=== PATIENT | female | born 1940 | race Caucasian/White ===

== ENCOUNTER 2016-08-21 08:44 | Inpatient (IN) ==
[2016-08-21] MEDS ORDERED: NS 500 ML IV ONE (12:11)
[2016-08-21 12:33] LABS: MANUAL DIFF NEEDED? NO
[2016-08-21 12:34] LABS: BASO% 0.7 % (0.0-0.8); EOS# 0.07 X1000 (0.0-0.7); EOS% 1.2 % (0.0-10.0); HEMATOCRIT 33.1 % (37.0-47.0); HEMOGLOBIN 11.4 g/dL (12.0-16.0); LYMPH% 15.6 % (20.5-51.1); MCH 32.7 PG (27-31); MCHC 34.4 g/dL (33-37); MCV 94.8 FL (81-99); MONO# 0.69 X1000 (0.11-0.59); MPV 9.4 FL (7.4-10.4); NEUT% 70.5 % (42.2-75.2); PLT 223 X1000 (130-400); RBC 3.49 XMIL (4.2-5.4)
[2016-08-21 12:52] LABS: AGAP 11; ALBUMIN 4.3 g/dL (3.5-5.0); ALKALINE PHOSPHATASE 59 U/L (32-104); BUN 26 mg/dL (8-22); CALCIUM 9.1 mg/dL (8.8-10.2); CHLORIDE 93 mmol/L (98-107); COSMO 262; GOT 25 U/L (10-30); GPT 23 U/L (10-36); POTASSIUM 4.4 mmol/L (3.5-5.1); SODIUM 128 mmol/L (136-145); TCO2 24 mmol/L (25-35); TOTAL PROTEIN 7.1 g/dL (6.3-8.3)
--- NOTE | 2016-08-21 12:52 | HISTORY AND PHYSICAL ---
PRIMARY CARE PHYSICIAN: Dr. Anand Stroud. HISTORY OF PRESENT ILLNESS: Ms. 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 Patient displays continued fatigue, nausea with emesis, and persistent weakness with refractory to salt tablets at baseline. REVIEW OF SYSTEMS: Twelve point review of systems pertinent for items mentioned in the HPI. Patient denies chest pain, cough, fever, chills, any dysuria or blood in any of her systems. PAST MEDICAL HISTORY: Includes SIADH, chronic hyponatremia, Crohn disease, hypertension, nonspecific heart valve disease, and hypothyroidism. PAST SURGICAL HISTORY: No past surgical history. MEDICATIONS: The patient is on Imuran for the Crohn disease, Prilosec 20 mg 1 tablet p.o. daily, hydralazine 25 mg p.o. b.i.d., Toprol 25 mg 1 tablet p.o. daily, Cozaar 50 mg b.i.d., levothyroxine 150 mcg daily, amlodipine 5 mg 1 tablet p.o. daily, Requip 1 mg p.o. at bedtime, sodium chloride 1000 mg 1 tablet p.o. q.i.d., and Zofran 8 mg 1 tablet p.o. q.8 hours p.r.n. nausea and vomiting. ALLERGIES: Patient is allergic to amoxicillin, codeine, and some allergy prescriptions. FAMILY HISTORY: Negative for any age dependent issues or concerns. HABITS: Tobacco: The patient is a never smoker. No alcohol: No history of alcohol use. SOCIAL HISTORY: Patient is currently retired. . Does high level of activity on a chronic and daily basis. PHYSICAL EXAMINATION: VITAL SIGNS: BMI 24.9, blood pressure 168/82, O2 saturation 96% on room air, temperature 97.7 degrees. GENERAL: The patient is a thin, female in no acute distress. SKIN: Poor skin turgor. HEENT: Shows clear OP. Pupils equal, round, reactive to light. Extraocular movements are intact. NECK: No thyromegaly noted. CHEST: Clear to auscultation anteriorly, though thin with increased AP diameter. CV: Regular rate and rhythm. No murmurs, gallops, or rubs. ABDOMEN: Soft, nontender, nondistended. EXTREMITIES: Lower extremities show no cyanosis, clubbing, or edema. Normal peripheral pulses. NEUROLOGICAL: Cranial nerves 2 through 12 are grossly intact. LABS: From our prior evaluation 07/19/2016 show a sodium of 128 with a BUN of , creatinine of 0.64, chloride evaluated at 87. No labs or imaging additional at this time. ASSESSMENT: We have a 76-year-old female being evaluated for syndrome of inappropriate antidiuretic hormone and chronic hyponatremia. PLAN: We will provide antiemetics along with Samsca. Continue to monitor the hyponatremia and adjust fluids as appropriate. The patient will be followed as an inpatient due to this chronic condition but we will hopefully re-evaluate the patient quickly enough so that we can determine the best measure of treatment and then discharge for outpatient followup p.r.n. GI prophylaxis will be performed and the patient will be advised to ambulate and have sequential compression devices in place. No need for Lovenox at this time. cc: Anand Stroud MD
--- NOTE | 2016-08-21 13:09 | Diag Imaging Result Document ---
PROCEDURE NAME: CHEST-2 VIEWS - 08/21/2016 FRONTAL AND LATERAL CHEST, TWO VIEWS: COMPARISON: 03/08/2016. FINDINGS: The lungs are well expanded. The heart is not enlarged. The vessels are not distended. No pneumonia. No pleural effusions. IMPRESSION: No acute abnormality.
[2016-08-21] MEDS ORDERED: PNEUMOVAX 23 IM ONE (14:30)
[2016-08-21] MEDS: NS 1,000 ML IV SCH ×2 (14:46→23:27)
[2016-08-21] MEDS ORDERED: SAMSCA PO ONE (16:00)
[2016-08-22] MEDS: NS 1,000 ML IV SCH ×2 (07:00→17:06)
[2016-08-22] MEDS ORDERED: SYNTHROID PO SCH (07:15)
--- NOTE | 2016-08-22 07:23 | PROGRESS NOTE ---
DATE: 08/22/2016 PRIMARY CARE PHYSICIAN: Dr. Anand Stroud. SUBJECTIVE: Overnight, the patient responded well to therapy. Had 1 episode of blood pressure 135/51, noting the low diastolic number. No overt issues or complaints noted per staff. PHYSICAL EXAMINATION: Vital Signs: Temperature 97.6 degrees, pulse 56, respirations 19, blood pressure 156/52, O2 saturation 98% on room air. Weight 134. General Examination: Well developed, female, appearance younger than stated age. No acute distress. IV infusing without issues. HEENT: OP is clear. Pupils equal, round, and reactive to light and accommodation. Moist mucous membranes. Skin: Warm and dry. Chest: Clear to auscultation anteriorly. CV: Regular rate with occasional PVCs. No murmurs or gallops noted. Abdomen: Soft, nontender, nondistended. Bowel sounds positive. Extremities: Lower extremities with no cyanosis, no clubbing, and no edema noted. Neurological: Cranial nerves 2-12 are grossly intact. Is and Os: Show multiple voids but not specifically measured. LABORATORY DATA: Labs this a.m. are pending. The patient did have a chest x-ray performed on 08/21/2016 that shows no acute differences or changes. ASSESSMENT AND PLAN: This is a 76-year-old female with syndrome of inappropriate antidiuretic hormone secretion and chronic hyponatremia. We will continue fluid volume resuscitation. Follow the dose of Samsca and monitor for any changes symptomatically. Expected 1 overnight stay with discharge early in the morning. The patient should be evaluated for Samsca as an outpatient status post evaluation of the response to the current therapy. cc: Anand Stroud MD
[2016-08-22 07:31] LABS: MANUAL DIFF NEEDED? NO
[2016-08-22 07:34] LABS: BASO% 1.3 % (0.0-0.8); EOS# 0.11 X1000 (0.0-0.7); EOS% 2.9 % (0.0-10.0); HEMATOCRIT 35.3 % (37.0-47.0); HEMOGLOBIN 11.9 g/dL (12.0-16.0); LYMPH# 1.06 X1000 (1.2-3.4); LYMPH% 27.7 % (20.5-51.1); MCH 32.2 PG (27-31); MCHC 33.7 g/dL (33-37); MCV 95.4 FL (81-99); MONO# 0.59 X1000 (0.11-0.59); MONO% 15.4 % (1.7-9.3); MPV 9.6 FL (7.4-10.4); NEUT% 52.7 % (42.2-75.2); PLT 230 X1000 (130-400)
[2016-08-22 08:13] LABS: AGAP 11; ALBUMIN 3.9 g/dL (3.5-5.0); ALKALINE PHOSPHATASE 59 U/L (32-104); BUN 16 mg/dL (8-22); CALCIUM 9.3 mg/dL (8.8-10.2); CHLORIDE 104 mmol/L (98-107); COSMO 278; GOT 22 U/L (10-30); GPT 21 U/L (10-36); MAGNESIUM 2.1 mg/dL (1.5-2.7); POTASSIUM 4.1 mmol/L (3.5-5.1); SODIUM 139 mmol/L (136-145); TCO2 25 mmol/L (25-35)
[2016-08-22] MEDS: ENTOCORT EC PO SCH (08:32)
[2016-08-22] MEDS: SYNTHROID PO SCH (08:33)
[2016-08-22] MEDS: APRESOLINE PO SCH ×4 (08:33→22:47)
[2016-08-22] MEDS ORDERED: ASTELIN NASAL SPRAY NAS PRN (09:00)
[2016-08-22] MEDS ORDERED: IMURAN PO SCH (09:00)
[2016-08-22] MEDS: COLAZAL PO SCH ×3 (10:46→22:47)
[2016-08-22] MEDS: IMURAN PO SCH ×2 (19:36→22:48)
[2016-08-22] MEDS ORDERED: REQUIP PO SCH (21:00)
[2016-08-23] MEDS: APRESOLINE PO SCH (04:04)
[2016-08-23] MEDS: SYNTHROID PO SCH (06:04)
[2016-08-23 06:10] LABS: MANUAL DIFF NEEDED? NO
[2016-08-23 06:27] LABS: BASO% 1.2 % (0.0-0.8); EOS# 0.17 X1000 (0.0-0.7); EOS% 3.3 % (0.0-10.0); HEMATOCRIT 32.9 % (37.0-47.0); HEMOGLOBIN 11.6 g/dL (12.0-16.0); IMM GRAN# 0.01 X1000 (0.0-0.04); IMM GRAN% 0.2 % (0.0-0.5); LYMPH# 1.16 X1000 (1.2-3.4); LYMPH% 22.4 % (20.5-51.1); MCH 33.9 PG (27-31); MCHC 35.3 g/dL (33-37); MCV 96.2 FL (81-99); MONO# 0.73 X1000 (0.11-0.59); MONO% 14.1 % (1.7-9.3); MPV 10.5 FL (7.4-10.4); NEUT% 58.8 % (42.2-75.2); PLT 209 X1000 (130-400); RBC 3.42 XMIL (4.2-5.4)
[2016-08-23 07:00] LABS: AGAP 13; ALBUMIN 3.6 g/dL (3.5-5.0); ALKALINE PHOSPHATASE 54 U/L (32-104); BUN 13 mg/dL (8-22); CHLORIDE 103 mmol/L (98-107); COSMO 270; GOT 24 U/L (10-30); GPT 19 U/L (10-36); POTASSIUM 4.1 mmol/L (3.5-5.1); SODIUM 135 mmol/L (136-145); TCO2 19 mmol/L (25-35); TOTAL PROTEIN 5.9 g/dL (6.3-8.3)
[2016-08-23 07:12] VITALS: BP 154/82
[2016-08-23] MEDS ORDERED: SAMSCA PO ONE (07:13)
[2016-08-23] MEDS: COLAZAL PO SCH (08:55)
[2016-08-23] MEDS: ENTOCORT EC PO SCH (08:57)
--- NOTE | 2016-08-24 13:21 | DISCHARGE SUMMARY ---
ADMISSION DATE: 08/21/2016 DISCHARGE DATE: 08/23/2016 PRIMARY CARE PHYSICIAN: Anand Stroud MD. HISTORY OF PRESENT ILLNESS: The patient was admitted on 08/21/2016, being discharged today 08/23/2016. No consults. In brief, Ms Celaya is a 76-year-old, white female with a history of SIADH and chronic hyponatremia directed admit for overnight stay for evaluation and appropriate treatment with the use of Samsca for the chronic hyponatremia. PROBLEM LIST: 1. Includes SIADH. 2. Chronic hyponatremia. 3. Crohn's disease. 4. Hypertension. 5. Nonspecific heart valve disease. 6. Hypothyroidism. 7. Hypertension. LABS: Showed WBC within normal limits. Hemoglobin and hematocrit of 11 and 32 respectively. MCV of 96. Platelet count 209,000, neutrophils of 58.8, chemistry shows sodium from 128 up to 139, and down to 135 status post 1 dose of Samsca. Anion gap of 13. BUN 13. Creatinine 0.5 and phosphorus within normal limits. Total protein 5.9. TSH 0.20. Urine osmolality 443 with urine random sodium of 61. The patient had a chest x-ray performed 08/21/2016 that showed no acute abnormality with well expanded lungs, heart enlarged. HOSPITAL COURSE: Patient is admitted to general medical floor and treated with IV fluid resuscitation and continuation of her home medications, and 1 dose of Samsca, is status post 2 L of fluid. Patient responded well, is appropriate. Stated that she felt much better and the patient was continued to be watched overnight. On the day of discharge, patient's sodium did fall a small bit, but still far above standard baseline. One additional dose of Samsca is going to be provided before the patient's discharge. DISPOSITION: The patient will be discharged home in stable condition. MEDICATIONS: Please refer to medication reconciliation order form for most up-to-date medications. Patient will be continued on her home medications and will have Samsca twice weekly. That will be provided outpatient status post the physician's prior authorization. The patient has been discharged today with advice to follow up in my office on Friday to start that process for the prior authorization. cc: Anand Stroud MD
== END 2016-08-23 10:55 | disposition home or self-care (01) ==
LOC: P.DIRADM 08:44 → P.MEDSURG 11:10
PROVIDERS: ADMIT Family Medicine; ATTEND Family Medicine

== ENCOUNTER 2017-01-22 01:25 | Inpatient (IN) ==
[2017-01-22] MEDS ORDERED: ZOFRAN IV ONE ×2 (02:58→07:18)
[2017-01-22 03:10] LABS: BILIRUBIN URINE NEGATIVE (NEGATIVE); BLOOD URINE TRACE (NEGATIVE); CLARITY SL. CLOUDY (CLEAR); COLOR YELLOW; GLUCOSE URINE NEGATIVE (NEGATIVE); LEUKOCYTES URINE NEGATIVE (NEGATIVE); NITRITE URINE NEGATIVE (NEGATIVE); PROTEIN URINE NEGATIVE (NEGATIVE); SP GRAVITY URINE 1.015; UROBILINOGEN URINE NORMAL
[2017-01-22 03:22] LABS: URINE CULTURE PL NEEDED? YES; URINE EPITHELIAL CELLS <10 /HPF (<10); URINE RBC <10 /HPF (<10); URINE SOURCE CLEAN CATCH; URINE WBC <10 /HPF (<10)
[2017-01-22] MEDS: NS 1,000 ML IV PRN ×2 (03:30→19:33)
[2017-01-22 03:31] LABS: BASO% 0.1 % (0.0-0.8); EOS# 0.01 X1000 (0.0-0.7); EOS% 0.1 % (0.0-10.0); HEMATOCRIT 40.8 % (37.0-47.0); HEMOGLOBIN 14.3 g/dL (12.0-16.0); IMM GRAN# 0.02 X1000 (0.0-0.04); IMM GRAN% 0.1 % (0.0-0.5); LYMPH% 6.5 % (20.5-51.1); MANUAL DIFF NEEDED? YES; MCH 31.9 PG (27-31); MCV 91.1 FL (81-99); MONO% 6.5 % (1.7-9.3); MPV 9.9 FL (7.4-10.4); NEUT% 86.7 % (42.2-75.2); PLT 243 X1000 (130-400); RBC 4.48 XMIL (4.2-5.4)
[2017-01-22 03:53] LABS: BANDS 1 % (0-1); LYMPHS 12 % (21-51); MONO 4 % (1-9)
[2017-01-22 03:56] LABS: HYPOCHROM OCCASIONAL; TARGET CELLS OCCASIONAL
[2017-01-22 03:58] LABS: AGAP 13; ALBUMIN 4.5 g/dL (3.5-5.0); ALKALINE PHOSPHATASE 69 U/L (32-104); BUN 12 mg/dL (8-22); CALCIUM 9.7 mg/dL (8.8-10.2); CHLORIDE 87 mmol/L (98-107); COSMO 254; GOT 29 U/L (10-30); GPT 22 U/L (10-36); POTASSIUM 3.6 mmol/L (3.5-5.1); SODIUM 125 mmol/L (136-145); TCO2 25 mmol/L (25-35); TOTAL PROTEIN 8.1 g/dL (6.3-8.3)
[2017-01-22] MEDS ORDERED: DEMEROL IV ONE (04:10)
--- NOTE | 2017-01-22 04:16 | PROVIDER DOCUMENTATION ---
HPI-Abdominal Pain/GI Problem - General Chief Complaint: Abdominal Pain Stated Complaint: VOMITING Time Seen by Provider: 01/22/17 02:56 Source: patient Allergies/Adverse Reactions: Patient Allergies Allergy/AdvReac Type Severity Reaction Status Date / Time amoxicillin trihydrate * Allergy Mild ITCHING Verified 01/22/17 01:38 [From Amoxil] codeine Allergy Mild NAUSEA/VOMI Verified 01/22/17 01:38 TING Home Medications: Home Medication List Medication Instructions Recorded Confirmed Last Taken Type Azathioprine [Imuran] 100 mg PO HS tablet 08/22/16 01/22/17 Unknown Rx Budesonide E.r. [Entocort EC] 3 mg PO DAILY capsule 08/22/16 01/22/17 Unknown Rx Levothyroxine [Synthroid] 150 microgm PO DAILY@0700 tablet 08/22/16 01/22/17 Unknown Rx Ropinirole [Requip] 1 mg PO HS tablet 08/22/16 01/22/17 Unknown Rx Metoprolol Succinate E.r. [Toprol 25 mg PO DAILY 01/22/17 01/22/17 Unknown History Xl] - History of Present Illness-ABD Abdominal Pain Onset Location: reports: RLQ, LLQ, periumbilical, suprapubic Pain Radiation: reports: no radiation Quality of Pain: reports: cramping, stabbing Severity in ED: reports: severe Onset/Duration: reports: 4-6 hours ago Timing: reports: still present Activities at Onset: reports: rest Exposure to sick contacts?: No Modifying Factors: improves with: eating Associated Symptoms: reports: vomiting Last BM: 24 hours ago Dark Stools Present?: reports: none noticed Rectal Bleeding: reports: none # of Vomiting Episodes: 3 Emesis Description: reports: clear Bruising or Bleeding Gums?: No Similar Symptoms Previously?: Yes (BOWEL OBSTRUCTION) Recently seen or treated by another doctor?: No Review of Systems - Adult - REVIEW OF SYSTEMS - ADULT Constitutional: reports: no symptoms reported Eyes: reports: no symptoms reported Ears, Nose, Mouth & Throat: reports: no symptoms reported Cardiovascular: reports: no symptoms reported Respiratory: reports: no symptoms reported Gastrointestinal: reports: abdominal pain, nausea, vomiting Genitourinary: reports: no symptoms reported Musculoskeletal: reports: no symptoms reported Integumentary: reports: no symptoms reported Neurological: reports: no symptoms reported Psychiatric: reports: no symptoms reported Endocrine: reports: no symptoms reported Hematologic/Lymphatic: reports: no symptoms reported Allergic/Immunologic: reports: no symptoms reported All Other Systems: Reviewed and Negative Past History - Adult - PAST MEDICAL HISTORY-ADULT Review of Records: reports: Old Records Reviewed, Nursing Assessment Review, Medications Reviewed, Social history reviewed & non-contributory. Major Childhood Illnesses: reports: denies history Cardiovascular: reports: HTN Respiratory: reports: denies history Gastrointestinal: reports: Crohn's, obstruction, other (Crohns previous ' blockage.'). denies: GI bleed Obstetrical/Gynecological: reports: denies history Genitourinary: reports: denies history Musculoskeletal: reports: denies history Neurological: reports: denies history Endocrine/Immune: reports: denies history Other Conditions: reports: denies history - PRIOR SURGERIES/PROCEDURES Surgical/Procedure History: reports: colonoscopy, bowel surgery. denies: recent surgery, CABG - PRIOR HOSPITALIZATIONS Prior Hospitalizations: reports: for similar symptoms - IMMUNIZATION STATUS Childhood Immunizations: See Nurse Assessment Flu Vaccine: See Nurse Assessment - FAMILY HISTORY Family History: reviewed, not pertinent Physical Exam-General - PHYSICAL EXAM-ADULT Initial Vital Signs Reviewed: Yes - CONSTITUTIONAL General Appearance: alert, moderate distress, anxious - EYES Eyes: PERRL/EOMI, pink conjunctivae - HEAD, EARS, NOSE, MOUTH & THROAT HENMT: normocephalic/atraumatic, moist mucous membranes, normal ENT inspection, TMs normal - NECK Neck: non-tender, full range of motion, supple - RESPIRATORY Respiratory: normal breath sounds, crackles (SCATTERED) - CARDIOVASCULAR Cardiovascular: regular rate, rhythm, no edema, no gallop, no JVD - GASTROINTESTINAL (ABDOMEN) Abdominal Exam: normal bowel sounds, distended, guarding, tenderness (ACROSS PELVIS). negative: rigid - LYMPHATIC Lymphatic: no adenopathy - MUSCULOSKELETAL Back Exam: no CVA tenderness, no vertebral tenderness Extremity: non-tender, normal gait, normal inspection, no pedal edema - SKIN Integumentary: normal color, normal turgor, warm/dry, abrasion(s) - NEUROLOGIC Neurologic: grossly normal, no motor/sensory deficits - PSYCHIATRIC Psych/Mental Status: anxious Progress - PLAN OF CARE/RESULTS Progress/Plan/Lab Results: Vital Signs - 8 hr 01/22/17 01:31 Temperature 97.4 F L Pulse Rate 67 Respiratory Rate 16 Blood Pressure 151/72 O2 Sat by Pulse Oximetry 96 Laboratory Results - last 24 hr 01/22/17 01/22/17 01/22/17 02:53 03:05 03:05 WBC 13.77 H RBC 4.48 Hgb 14.3 Hct 40.8 MCV 91.1 MCH 31.9 H MCHC 35.0 RDW Std Deviation 13.7 Plt Count 243 MPV 9.9 Immature Gran % (Auto) 0.1 Neut % (Auto) 86.7 H Lymph % (Auto) 6.5 L Ware % (Auto) 6.5 Eos % (Auto) 0.1 Baso % (Auto) 0.1 Immature Gran # (Auto) 0.02 Neut # (Auto) 11.92 H Lymph # (Auto) 0.90 L Ware # (Auto) 0.90 H Eos # (Auto) 0.01 Baso # (Auto) 0.02 Segmented Neutrophils 82 H Band Neutrophils 1 Lymphocytes 12 L Monocytes 4 Atypical Lymphocytes 1.0 Hypochromia OCCASIONAL Poikilocytosis OCCASIONAL Target Cells OCCASIONAL Sodium 125 L Potassium 3.6 Chloride 87 L Carbon Dioxide 25 Anion Gap 13 BUN 12 Creatinine 0.6 Estimated GFR/1.73 m2 > 60 BUN/Creatinine Ratio 20 Glucose 150 H Calculated Osmolality 254 Calcium 9.7 Total Bilirubin 0.60 AST 29 ALT 22 Alkaline Phosphatase 69 Total Protein 8.1 Albumin 4.5 Globulin 4.0 Albumin/Globulin Ratio 1.0 Urine Source CLEAN CATCH Urine Color YELLOW Urine Clarity SL. CLOUDY A Urine pH 9.0 Ur Specific [place] 1.015 Urine Protein NEGATIVE Urine Ketones NEGATIVE Urine Blood TRACE Urine Nitrite NEGATIVE Urine Bilirubin NEGATIVE Urine Urobilinogen NORMAL Urine Microscopic RBC <10 Urine WBC NEGATIVE Urine Microscopic WBC <10 Ur Epithelial Cells <10 Urine Bacteria 3+ Urine Glucose NEGATIVE Orders Category Date Time Status CT ABD/PELVIS W/PO AND IV CON [CT] Stat Exams 01/22/17 04:09 Ordered FLAT/UPRIGHT ABD/1 VIEW CHEST [RAD] Stat Exams 01/22/17 02:57 Taken CBC WITH DIFF [HEME] Stat Lab 01/22/17 03:05 Completed COMPREHENSIVE METABOLIC PANEL [CHEM] Stat Lab 01/22/17 03:[address] W/POSS RFLX CULT [URINALYSIS] Stat Lab 01/22/17 02:53 Completed URINE CULTURE [RM] Routine Lab 01/22/17 03:22 Ordered 0.9% Sodium Chloride Inj [Ns] 1,000 ml Med 01/22/17 02:58 Active IV 70 mls/hr Meperidine [Demerol] Med 01/22/17 04:10 Once 25 mg IV NOW ONE Ondansetron [Zofran] Med 01/22/17 02:58 Discontinued 4 mg IV NOW ONE Result Diagrams: 01/22/17 03:05 01/22/17 03:05 - REASSESSMENT Reassessment #1 Time Reassessed: 07:20 Status: unchanged (Took over pt's care at 6AM. Pt was examined. Reports she her lower abd still hurting and she vomited again. Awaiting for CT to be done. On PE , diffused lower abd distention and tenderness with somewhat guarding. IV Zofran and Morphine was given.) - XRAY 1 XRAY Study: Abdomen (LARGE AMT STOOL TRAPPED IN ASCENDING COLON WITH SCATTERED A -F LEVELS ACROSS MID ABDOMEN; BUT, NO DEFINITE OBSTRUCTION SEEN. C/W ILEUS) - CT/MRI 1 CT Study: Abdomen, Pelvis Impression: Abnormal CT Results: Please see Radiology report - cannot r/o distal SBO - CONSULTS/PCP/HOSPITALIST Notification #1 *Consult/PCP/Hospitalist*: Dr. Kessler Time Discussed: 08:36 Reason/Comments: Admit to hospitalist at [facility]. Dr. Kessler will the pci security consultant #2 Consult: Dr. Hill Time Discussed: 08:37 Reason/Comments: Will do H&P and admit to [facility] Departure - Departure Date of Disposition Decision: 01/22/17 Time of Disposition Decision: 08:37 DIAGNOSIS: SBO (small bowel obstruction), Nausea & vomiting Disposition: ADMITTED INPATIENT 09 Certified Medical Emergency: Emergent Condition: Stable Referrals and Follow-Ups: Anand Stroud MD [Primary Care Provider] - - Critical Care Note This patient required my direct & personal management of CC.: No Attestation - Physician/ MANDI Attestation Patient care was provided by Advanced Practice Provider:: No The physician spent face to face time with patient:: Yes Advanced Practice Provider documentation review:: Supervising physician onsite and consulted in the evaluation and care of this patient. The physician did have a face to face encounter with the patient.
[2017-01-22] MEDS ORDERED: PHENERGAN IV ONE ×2 (04:27→05:54)
[2017-01-22] MEDS ORDERED: SODIUM CHLORIDE 0.9% INJ ONE ×2 (04:27→05:54)
[2017-01-22] MEDS ORDERED: MORPHINE IV ONE (07:18)
--- NOTE | 2017-01-22 07:51 | Diag Imaging Result Doc PS360 ---
EXAM: CT ABD/PELVIS W/PO AND IV CON - 01/22/2017 HISTORY: ABD PAIN TECHNIQUE: With oral and intravenous contrast. Dose reduction protocol. COMPARISON: 07/01/2013 FINDINGS: There is a 1.2 x 0.8 cm lobulated noncalcified nodule with hazy margins at the posterior lateral right lung base. This is located above the level of the superiormost image of the previous exam. There are no acute abnormalities of the liver, adrenal glands, or pancreas identified. The spleen is relatively small but enhances homogeneously. There are no calcified gallstones or pericholecystic inflammation identified. The bilateral kidneys enhance homogeneously. There is no hydronephrosis. There are no substantial enlarged lymph nodes identified. The stomach is distended. There is diffuse dilatation of small bowel. There is mild wall thickening at the terminal ileum. There is fecal-like material in distal ileum suggesting stasis. There are postsurgical changes at the cecum or remaining proximal most colon. The colon is distended with retained fecal debris to approximately the splenic flexure. There is no discrete colon obstructing lesion identified. There is mild uncomplicated colonic diverticulosis. There is a small amount of free fluid. There is no free air identified. There is no abscess identified. IMPRESSION: Distended stomach. Diffusely dilated small bowel. Postsurgical changes at the cecum or remaining proximal most colon Distended colon with retained fecal debris to approximately the splenic flexure. Mild wall thickening along terminal ileum. The above findings may relate to colonic dysmotility with associated small bowel stasis, or possibly to a combination of colonic dysmotility and terminal ileitis with distal small bowel obstruction. Electronically signed by Peter Melvin 01/22/2017 7:49 AM
--- NOTE | 2017-01-22 08:35 | Diag Imaging Result Doc PS360 ---
EXAM: FLAT/UPRIGHT ABD/1 VIEW CHEST - 01/22/2017 HISTORY: ABD PAIN TECHNIQUE: Supine and upright abdomen and one view chest COMPARISON: 03/06/2016 FINDINGS: There is a large amount retained fecal debris in the colon. There is mild gaseous distention of proximal small bowel loops. There are multiple air-fluid levels on the upright view. There is no free air identified. There are surgical clips at the right lower quadrant. Upright chest. Labral 04/30/2017 shows normal heart size. There is a possible small nodular opacity at the right lower lung. There is no consolidation, pleural effusion, or pneumothorax identified. IMPRESSION: Constipation. Mild gaseous distention of a couple small bowel loops. Multiple air-fluid levels on the upright view. Please see report of subsequent CT abdomen and pelvis for further evaluation Possible small nodular opacity at right lower lung. No other acute changes in the chest. Electronically signed by Peter Melvin 01/22/2017 8:33 AM
[2017-01-22] MEDS ORDERED: PNEUMOVAX 23 IM ONE (11:15)
[2017-01-22] MEDS: MORPHINE IV PRN ×3 (11:16→21:36)
[2017-01-22] MEDS: ZOFRAN IV PRN ×2 (11:16→14:52)
--- NOTE | 2017-01-22 11:26 | HISTORY AND PHYSICAL ---
PRIMARY CARE PHYSICIAN: Anand Stroud MD. CHIEF COMPLAINT: Right lower quadrant and left lower quadrant abdominal pain that began Friday night and progressively worsened. HISTORY OF PRESENTING ILLNESS: This is a 76-year-old female who presents to [facility] ER with complaints of right lower quadrant and left lower quadrant abdominal pain. Describes it as a severe cramping, stabbing with associated nausea. Denies any vomiting. States these symptoms began around 8 a.m. on Friday night and progressively worsened. She has a history of small-bowel obstruction x2. She also has a history of Crohn disease. Her abdomen x-ray showed constipation mild gaseous distention of a couple of small bowel loops. Multiple air-fluid levels on the upright view. We obtained an abdomen and pelvic CT that showed an impression of a distended stomach with diffusely dilated small bowel. There were some postsurgical changes at the cecum or remaining proximal colon. Distended colon with retained fecal debris to approximately the splenic flexure. Mild wall thickening along the terminal ileum and the above findings may relate to a colonic dysmobility with associated small bowel stasis or possibly due to a combination of colonic dysmobility and terminal ileitis with distal small-bowel obstruction. So, she is being admitted for further evaluation and treatment. PAST MEDICAL HISTORY: SIADH. Chronic hyponatremia. Nonspecific heart valve disease. Bowel obstruction x2. Crohn's, hypertension and hypothyroidism. PAST SURGICAL HISTORY: Bowel surgery. FAMILY HISTORY: Noncontributory. SOCIAL HISTORY: She currently lives with family. Denies any tobacco, alcohol, or illicit drug use. ALLERGIES: Amoxicillin and codeine. HOME MEDICATIONS: Will be held at this time, but she takes aspirin 81 mg p.o. daily. Imuran 100 mg p.o. at bedtime, budesonide 3 mg p.o. daily. Synthroid 150 mcg p.o. daily. Toprol-XL 25 mg p.o. daily and Requip 1 mg p.o. at bedtime. LABORATORY DATA: Showed a white blood cell count of 13.77, hemoglobin 14.3, hematocrit 40.8, platelets 243. Sodium 125. Potassium 3.6, chloride 87, CO2 of 25, BUN of 12, creatinine 0.6, glucose 150. Urinalysis was negative except for 3+ bacteria. Abdomen x-ray showed constipation. Mild gaseous distention of a couple of small -bowel loops. Multiple air-fluid levels on the upright view. So, we obtained an abdomen and pelvic CT that showed a distended stomach. A diffusely dilated small-bowel. Retained fecal debris to approximately the splenic flexure. Mild wall thickening along the terminal ileum and those findings may relate with a colonic dysmotility with associated small bowel stasis or possibility a combination of colonic dysmotility and a terminal ileitis with a distal small- bowel obstruction. REVIEW OF SYSTEMS: She denied any fever, chills, blurred vision, dizziness, chest pain, coughing, shortness of breath. She is positive for lower quadrant abdominal pain, cramping, nausea. Denies any vomiting. She is positive for constipation and denies any diarrhea or burning or hurting with urination. PHYSICAL EXAMINATION: VITAL SIGNS: On arrival, she had a temperature of 97.4, pulse of 67, respirations 16, blood pressure 151/72, saturating 96% on room air. GENERAL: This is a 76-year-old, female who is lying in the bed, and answers questions appropriately. HEENT: Normocephalic and atraumatic. Pupils are equal, round, reactive to light. Extraocular movements are intact. Oropharynx and nares are clear. NECK: Supple. LUNGS: Clear to auscultation bilaterally with equal lung expansion and chest wall movement. HEART: With regular rate and rhythm. No murmurs, rubs, or gallops. ABDOMEN: Soft. There is tenderness to palpation to the right and left lower quadrant. Bowel sounds are present x4 quadrants. EXTREMITIES: No clubbing, cyanosis, or edema. NEUROLOGICAL: The cranial nerves 2-12 are grossly intact. ASSESSMENT: 1. Lower abdominal pain. 2. Small bowel obstruction. 3. Hyponatremia. 4. Hypertension. PLAN: She was admitted to the medical unit at [place], placed on telemetry. We will consult surgery and we will place an nasogastric tube to low intermittent suction. Urine culture is pending. We will place on morphine 1-2 mg IV q.3 hours p.r.n., normal saline at 70 mL an hour and Zofran 4 mg IV q.4 hours p.r.n. Recheck labs in the a.m. Further orders after being seen by surgery. Patient seen and examined by me face to face, all the lab work, images, vitals signs, were reviewed, She has been seen by surgery and GI before, I will consult surgery first because she is having abdominal distention and possible obstruction, will put this patient with IV fluids as well, NG tube. I agree with all the assessment and plan, Gurjit Scott MD Dictated by DONATO Figueredo for Gurjit John MD cc: MD Marge Rivera CRNP Omar J. Sosa-Chirinos, MD [facility]
--- NOTE | 2017-01-22 12:56 | Diag Imaging Result Doc PS360 ---
CHEST-PORTABLE - 01/22/2017 1229 INDICATION: NGT placement TECHNIQUE: COMPARISON: FINDINGS: There is a nasogastric tube in good position with the tip in the stomach. The lungs are clear and the heart size is normal. IMPRESSION: Nasogastric tube in the stomach. Electronically signed by Tuan Cardoso 01/22/2017 12:54 PM
[2017-01-22] MEDS: SOLU-MEDROL IV SCH (14:51)
[2017-01-22] MEDS: LEVAQUIN 750 MG/D5W 750 MG/150 ML IVPB IV SCH (14:52)
[2017-01-22] MEDS: FLAGYL 500 MG/NS 500 MG/100 ML IVPB IV SCH (16:37)
--- NOTE | 2017-01-22 18:05 | CONSULTATION ---
DATE OF CONSULTATION: 01/22/2017 REQUESTING PHYSICIAN: Dr. John REASON FOR CONSULTATION: Consult concerning likely Crohn's induced small bowel obstruction. HISTORY OF PRESENT ILLNESS: A 76-year-old female who presented to [facility] with complaints of right upper quadrant pain and left lower quadrant pain. She describes the pain as cramping and stabbing with associated nausea. She has had previous episodes of bowel obstruction secondary to Crohn's and had bowel resection x 2 in the past. She had a recent colonoscopy Dr. Martinez in December that showed a stricture in the terminal ilium. I discussed this over the phone with him and he confirmed that she is still being treated for Crohn's. She had a CT scan in the ER that showed a bowel obstruction likely related to a stricture in the terminal ileum. She does have some fecalization in her small bowel and significant stool burden in her colon. I was asked to evaluate the patient given these findings. PAST MEDICAL HISTORY: 1. History of SIADH. 2. Chronic hyponatremia. 3. Heart valvular disease. 4. Crohn's. 5. Hypertension. 6. Hypothyroidism. PAST SURGICAL HISTORY: Previous bowel resection x 2. FAMILY HISTORY: Reviewed with patient, noncontributory. SOCIAL HISTORY: Lives with family. Denies alcohol, tobacco or illicit drugs. ALLERGIES: Amoxicillin and codeine. HOME MEDICATIONS: Reviewed. Of note, patient is on Imuran. REVIEW OF SYSTEMS: A full 10 point review of systems obtained, negative as specified in HPI. PHYSICAL EXAMINATION: Vital Signs: The patient is currently afebrile with temperature 97.5 degrees, pulse is in the 70s, respiratory rate nonlabored in the 20s, blood pressure 168/64, O2 saturation 98% on room air. General exam: No acute distress. Resting comfortably. female, looks stated age. HEENT: Normocephalic, atraumatic. Pupils equal, round, reactive to light. Mucous membranes moist. Oropharynx benign. Neck: Supple. Trachea midline. Cardiovascular: Regular rate and rhythm. Lungs grossly clear. Abdomen: Soft, mildly distended. Some mild tenderness to palpation on the right side. No peritoneal signs. Extremities: Moves all extremities. Neurologic: Grossly intact. Skin: No signs of jaundice. Vascular: All extremities perfused. LABORATORY: White blood cell count is 13, hematocrit 40. Sodium is 125, chloride is 87, glucose is 150. CT scan reviewed and independently reviewed. ASSESSMENT/PLAN: A 76-year-old female with likely Crohn's exacerbation causing small- bowel obstruction secondary to stricture. 1. Stricture from small-bowel Crohn's. At this time, we will agree with nasogastric tube and decompression. May need MiraLAX once she gets better to kind of clean out the stool burden. Given the fact she had a recent colonoscopy and had a stricture at the terminal ilium, she likely probably needs a resection. I discussed her case with Dr. Martinez, who has been seeing her for long time for the Crohn disease. I will start her on Solu-Medrol and Levaquin after discussed it with him and his recommendations. Again will try to keep her decompressed and try to clean out her stool in the colon and in her small bowel and then consider surgery. 2. Multiple medical comorbidities including history of hypertension, hypothyroidism and hyponatremia, at this time being managed by the hospitalist service. She is being resuscitated. I appreciate the consult. cc: MD CHELO Griggs
[2017-01-23] MEDS: FLAGYL 500 MG/NS 500 MG/100 ML IVPB IV SCH ×3 (00:33→16:35)
[2017-01-23] MEDS: SOLU-MEDROL IV SCH ×2 (02:34→13:43)
[2017-01-23 06:32] LABS: BASO% 0.1 % (0.0-0.8); HEMATOCRIT 33.6 % (37.0-47.0); HEMOGLOBIN 11.6 g/dL (12.0-16.0); IMM GRAN# 0.01 X1000 (0.0-0.04); IMM GRAN% 0.1 % (0.0-0.5); LYMPH# 0.33 X1000 (1.2-3.4); LYMPH% 4.3 % (20.5-51.1); MANUAL DIFF NEEDED? YES; MCH 31.7 PG (27-31); MCHC 34.5 g/dL (33-37); MCV 91.8 FL (81-99); MONO# 0.19 X1000 (0.11-0.59); MONO% 2.5 % (1.7-9.3); PLT 199 X1000 (130-400); RBC 3.66 XMIL (4.2-5.4)
[2017-01-23 06:35] LABS: AGAP 9; BUN 12 mg/dL (8-22); CALCIUM 8.5 mg/dL (8.8-10.2); CHLORIDE 95 mmol/L (98-107); COSMO 260; POTASSIUM 4.3 mmol/L (3.5-5.1); SODIUM 129 mmol/L (136-145); TCO2 25 mmol/L (25-35)
[2017-01-23 08:12] LABS: BANDS 1 % (0-1); LYMPHS 4 % (21-51)
[2017-01-23] MEDS: MIRALAX PO SCH ×2 (08:17→20:09)
[2017-01-23] MEDS: NS 1,000 ML IV PRN (08:17)
--- NOTE | 2017-01-23 08:17 | PROGRESS NOTE ---
DATE: 01/23/2017 SUBJECTIVE: Patient doing okay. She is feeling better. She has not had a recorded bowel movement. She is not sick to her stomach. The output from NG tube is recorded at 200. OBJECTIVE: Vital Signs: Patient is currently afebrile. Her vital signs are stable. General exam: No acute distress. Resting comfortably. HEENT: Normocephalic atraumatic. Pupils equal, round, reactive to light. Mucous membranes moist. Oropharynx benign. Neck: Supple. Trachea midline. Cardiovascular: Regular rate and rhythm. Lungs: Grossly clear. Abdomen: Soft, nontender, nondistended. Extremities: Moves all extremities. Neurologic: Grossly intact. Skin: No signs of jaundice. Vascular: All extremities perfused. LABORATORY: Reviewed. Of note, patient's sodium is 129 which is up from 125. ASSESSMENT/PLAN: A 76-year-old female with Crohn with likely Crohn causing stricture. 1. Stricture from Crohn: At this time, her nasogastric tube is taking some of the pressure off her abdomen. We will keep her nasogastric tube in place, but clamp it and start her on MiraLAX to try to break up the stool burden that she has. I had a lengthy discussion with the family in the room. Discussed with them that my recommendation would probably be to have this area removed, although from discussion the family and the patient are somewhat hesitant to have another surgery since she has had difficult recoveries from both of them. I did discuss her case with Dr. Martinez and, again, he believes that the strictures are likely not amenable to medical management. They were likely to need surgical intervention. She has had previous ballooning done at [facility], but that essentially has only been a temporary fix. Again, I think the best thing would be for surgery, but I will leave it in the family and the patient's hands to decide. 2. Multiple medical comorbidities currently being managed by the hospitalist service. cc: Jonnathan Kessler MD
--- NOTE | 2017-01-23 11:25 | PROGRESS NOTE ---
DATE: 01/23/2017 SUBJECTIVE: This patient states that she is feeling better. She is not complaining of abdominal pain at this moment. Surgery department is following this patient closely. She just received a dose of stool softener and her NG has been clamped. Family members at the bedside. We discussed about the possibility of surgery in the near future but the patient has been refusing this. We will continue to monitor. OBJECTIVE: Vital Signs: Temperature 97.3 degrees, pulse 61, respiratory rate 18, blood pressure 140/67, oxygen saturation 93 on room air. HEENT: Head normocephalic. No trauma. PERRLA. Neck: Supple. No JVD. No masses. Central trachea. Chest: Clear to auscultation. No wheezing. No rales. Cardiovascular: RRR. Abdomen: Mild tenderness to palpation at the level of the right and left lower quadrant. Bowel sounds present. Extremities: No edema. No clubbing. No cyanosis. Neurological Examination: The patient is alert and oriented x3. No focal deficits. Laboratory: WBCs 7.7, hemoglobin 11.6, hematocrit 33.6, platelets 199,000. Sodium 129, potassium 4.3, chloride 95, bicarbonate 25, BUN 12, creatinine 0.6, glucose 115, calcium 8.5. ASSESSMENT AND PLAN: 1. Abdominal pain in a patient with previous surgery and stricture from the small bowel Crohn's. Surgery department is following this patient closely. Probably, this patient will need to go to the operating room but the patient is refusing this. Gastroenterology department also has been notified by Dr. Kessler. At this moment, she is not complaining of major pain. She is feeling much better. She has an NG tube that has been clamped and she received MiraLAX to see if we can have a bowel movement. Her sodium is low. 2. Hyponatremia. This has been chronically low. It is better compared with admission though. We will continue to monitor. We will continue with the same management. 3. Small-bowel obstruction, as above. 4. Hypertension. Continue with the same management. 5. History of Crohn's disease. Aware. 6. Syndrome of inappropriate antidiuretic hormone secretion. This is probably why this patient has chronic hyponatremia. We will continue to monitor. She is stable. 7. Nonspecific heart valve disease. Aware. cc: Gurjit John MD
[2017-01-23] MEDS: LEVAQUIN 750 MG/D5W 750 MG/150 ML IVPB IV SCH (13:43)
[2017-01-23] MEDS: REQUIP PO SCH (20:09)
[2017-01-24] MEDS: FLAGYL 500 MG/NS 500 MG/100 ML IVPB IV SCH ×4 (01:48→23:12)
[2017-01-24] MEDS: SOLU-MEDROL IV SCH ×2 (03:54→14:00)
[2017-01-24 05:31] LABS: MANUAL DIFF NEEDED? NO
[2017-01-24 05:34] LABS: EOS# 0.01 X1000 (0.0-0.7); EOS% 0.1 % (0.0-10.0); HEMOGLOBIN 11.7 g/dL (12.0-16.0); IMM GRAN# 0.02 X1000 (0.0-0.04); IMM GRAN% 0.2 % (0.0-0.5); LYMPH# 0.92 X1000 (1.2-3.4); LYMPH% 9.6 % (20.5-51.1); MCH 32.1 PG (27-31); MCHC 34.4 g/dL (33-37); MCV 93.2 FL (81-99); MONO# 0.94 X1000 (0.11-0.59); MONO% 9.8 % (1.7-9.3); MPV 10.4 FL (7.4-10.4); NEUT% 80.3 % (42.2-75.2); PLT 207 X1000 (130-400); RBC 3.65 XMIL (4.2-5.4)
[2017-01-24 06:02] LABS: AGAP 8; BUN 14 mg/dL (8-22); CALCIUM 8.5 mg/dL (8.8-10.2); CHLORIDE 99 mmol/L (98-107); COSMO 263; POTASSIUM 4.1 mmol/L (3.5-5.1); SODIUM 131 mmol/L (136-145); TCO2 24 mmol/L (25-35)
[2017-01-24] MEDS: MIRALAX PO SCH ×2 (08:19→20:06)
--- NOTE | 2017-01-24 08:54 | PROGRESS NOTE ---
DATE: 01/24/2017 SUBJECTIVE: The patient is doing okay. Reports no nausea. She tolerated her MiraLAX. She said she has passed gas but has not had a bowel movement. Her abdominal pain has improved. OBJECTIVE: Vital Signs: Patient is currently afebrile. Her vital signs are stable. General Exam: No acute distress. HEENT: Normocephalic, atraumatic. Pupils equal, round, reactive to light. Mucous membranes moist. Oropharynx benign. NG tube clamped. Trachea midline. Cardiovascular: Regular rate and rhythm. Lungs: Grossly clear. Abdomen: Soft. Nontender, nondistended. Extremities: Moves all extremities. Neurologic: Grossly intact. Skin: No signs of jaundice. Vascular: All extremities perfused. LABORATORY DATA: Reviewed from this morning. Essentially normal. She does have a normal white blood cell count at 9. ASSESSMENT AND PLAN: A 76-year-old female with likely Crohn's stricture. 1. Crohn's stricture. At this time, she is tolerating her MiraLAX. Would continue doing that until we have productivity as far as a bowel movement. She is severely constipated. If she seems to tolerate for the rest of the day, she would probably have her NG tube removed later today. Overall, I still suspect that the patient would need a surgical intervention given the fact that she has had recurrence several times of the stricture and it is likely not amenable to continued ballooning and medical management but the patient, at this time, still wants to hold off. So, will obey her wishes. We will continue to follow her while she is in the hospital. 2. Other medical comorbidities are currently going to be managed by the hospitalist service. cc: Jonnathan Kessler MD
[2017-01-24] MEDS: LEVAQUIN 750 MG/D5W 750 MG/150 ML IVPB IV SCH (14:00)
[2017-01-24] MEDS ORDERED: APRESOLINE IV PRN (15:23)
--- NOTE | 2017-01-24 16:38 | PROGRESS NOTE ---
DATE: 01/24/2017 SUBJECTIVE: Today Ms. Celaya continues to be stable. She has NG tube putting out adequate gastric output. OBJECTIVE: Vital signs: Blood pressure is 183/66, pulse of 64, respirations 18, temperature 97.9 degrees. General: Ms. Celaya is a 76-year-old female. She is in bed, not seemingly distressed. HEENT: Mucosa is pink and moist. Anicteric and acyanotic. There is an NG tube in place. Neck: Supple. No JVD. Chest: Good air entry bilateral. Cardiovascular: Regular rate and rhythm. No murmurs, no rubs. No gallops. Abdomen: Soft, mildly tender. Generally, there is an old infraumbilical surgical scar. Extremities: No pedal edema. DOG HAIR CLIPPER: Patient is awake and alert and oriented. LABORATORY DATA: WBC is 9.58, hemoglobin is 11.7, platelet count of 207,000. Chemistry is reviewed. Sodium is 131, potassium is 4.1, chloride is 99, bicarb is 24. IMAGING: Review of the patient's CT scan report did show diffuse dilation of small bowel. Mild wall thickening at the terminal ileum. ASSESSMENT: 1. Abdominal pain secondary to colonic dysmotility with terminal ileitis and distal small bowel partial obstruction. 2. Crohn's stricture. Patient is currently on antibiotic and steroids. 3. Hyponatremia, improving. 4. Hypertension. We will start the patient on p.r.n. hydralazine until we are able to use the enteral route. 5. Small-bowel obstruction. We will keep the patient NPO, adequate hydration and follow up with further recommendations from General Surgery. 6. Severe constipation. We will continue with MiraLAX for bowel prep. cc: Ulises Mason MD
[2017-01-24] MEDS ORDERED: GOLYTELY PO ONE (17:40)
[2017-01-24] MEDS: REQUIP PO SCH (20:06)
[2017-01-24] MEDS: MORPHINE IV PRN (20:07)
[2017-01-24] MEDS: NS 1,000 ML IV PRN (23:14)
[2017-01-25] MEDS: SOLU-MEDROL IV SCH ×2 (02:03→14:25)
[2017-01-25 06:55] LABS: AGAP 11; BUN 13 mg/dL (8-22); CALCIUM 8.6 mg/dL (8.8-10.2); CHLORIDE 99 mmol/L (98-107); COSMO 264; POTASSIUM 3.7 mmol/L (3.5-5.1); SODIUM 131 mmol/L (136-145); TCO2 21 mmol/L (25-35)
[2017-01-25] MEDS: MIRALAX PO SCH ×2 (11:34→20:47)
[2017-01-25] MEDS: FLAGYL 500 MG/NS 500 MG/100 ML IVPB IV SCH ×2 (11:34→19:40)
[2017-01-25] MEDS: LEVAQUIN 750 MG/D5W 750 MG/150 ML IVPB IV SCH (14:25)
--- NOTE | 2017-01-25 15:39 | PROGRESS NOTE ---
DATE: 01/25/2017 SUBJECTIVE: The patient denies abdominal pain, nausea, or vomiting. However she has not had a bowel movement or passed gas yet. OBJECTIVE: Vital signs: She is afebrile. Vital signs are stable. General: She is alert and oriented x4. No acute distress. Gastrointestinal: Soft, nondistended, nontender. LABORATORY: Sodium 131, potassium 3.7, chloride 99, CO2 21, BUN 13, creatinine 0.5, glucose 118. ASSESSMENT/PLAN: This is a 76-year-old female with a small bowel obstruction secondary to a stricture of the terminal ileum. She also has chronic constipation. Currently she is trying to receive a bowel prep with GoLYTELY. We await to see if this will resolve. She does not have an acute surgical abdomen at this time. cc: Chun Sullivan MD
[2017-01-25] MEDS: REQUIP PO SCH (20:47)
--- NOTE | 2017-01-25 20:55 | PROGRESS NOTE ---
DATE: 01/25/2017 SUBJECTIVE: Today Ms. Celaya referred to be doing a lot better. No abdominal pain. Still has NG tube in place and she is tolerating the GoLYTELY. OBJECTIVE: Vitals: Stable, blood pressure is 173/55, pulse of 63, respiration is 18, temperature is 97.3 degrees, patient is saturating 99% on room air. General: Ms. Celaya is a 76-year-old female. She is in bed. She is not in any distress. HEENT: Mucosa is pink and moist. Anicteric. Acyanotic. Neck: Supple. No JVD. Chest: Good air entry bilateral. No crepitations. No rhonchi. Cardiovascular: Regular rate and rhythm. There is no murmurs, no rubs, no gallops. Abdomen: Soft, nontender. Bowel sounds are present. There is an old infraumbilical surgical scar. There is an NG tube in place. Extremities: No pedal edema. CONSULTING SYSTEMS ENGINEER: Patient is awake, alert and oriented x4. There is no focal neurological deficit. LABORATORY DATA: Chemistry is reviewed. Sodium is 131, potassium is 3.7, chloride 99, bicarb is 21. CURRENT MEDICATIONS: Include Levaquin, prednisone, metronidazole, GoLYTELY, Requip for restless legs syndrome. ASSESSMENT: 1. Abdominal pain secondary to distal partial small-bowel obstruction versus colonic dysmotility. 2. Terminal ileitis possibly due to Crohn flare. 3. Hyponatremia. 4. Hypertension. Will continue using hydralazine. 5. Distal small bowel obstruction secondary to Crohn stricture. 6. Severe constipation. Will continue with the GoLYTELY. We are going to continue the gentle IV hydration and the current antibiotics and the steroid therapy, review the patient electrolytes for tomorrow morning. Will also do a TSH just to make sure patient does not have any underlying thyroid disorder that is also compounding her constipation. Will repeat her KUB for tomorrow morning. cc: MD CHELO Goodson
[2017-01-26] MEDS: FLAGYL 500 MG/NS 500 MG/100 ML IVPB IV SCH ×3 (02:05→12:05)
[2017-01-26] MEDS: SOLU-MEDROL IV SCH ×2 (02:05→15:46)
[2017-01-26] MEDS: MORPHINE IV PRN (04:08)
[2017-01-26 07:12] LABS: HEMATOCRIT 36.7 % (37.0-47.0); HEMOGLOBIN 12.9 g/dL (12.0-16.0); IMM GRAN# 0.01 X1000 (0.0-0.04); IMM GRAN% 0.1 % (0.0-0.5); LYMPH# 0.54 X1000 (1.2-3.4); LYMPH% 6.8 % (20.5-51.1); MANUAL DIFF NEEDED? YES; MCH 32.2 PG (27-31); MCHC 35.1 g/dL (33-37); MCV 91.5 FL (81-99); MONO# 0.27 X1000 (0.11-0.59); MONO% 3.4 % (1.7-9.3); MPV 10.7 FL (7.4-10.4); NEUT% 89.7 % (42.2-75.2); PLT 215 X1000 (130-400); RBC 4.01 XMIL (4.2-5.4)
[2017-01-26 07:14] LABS: AGAP 12; BUN 12 mg/dL (8-22); CALCIUM 8.9 mg/dL (8.8-10.2); CHLORIDE 96 mmol/L (98-107); COSMO 263; POTASSIUM 3.6 mmol/L (3.5-5.1); SODIUM 131 mmol/L (136-145); TCO2 23 mmol/L (25-35)
[2017-01-26 07:55] LABS: LYMPHS 9 % (21-51); MONO 2 % (1-9)
--- NOTE | 2017-01-26 07:56 | Diag Imaging Result Doc PS360 ---
EXAM: KUB ABDOMEN HISTORY: abd pain TECHNIQUE: KUB COMMENT: There is gas and some apparent fluid in the colon. Small bowel and stomach are not distended. There is an NG tube in the distal stomach. Compared to 01/22/2017 the quantity of stool which was present throughout the colon previously has diminished considerably. IMPRESSION: Improved constipation. Otherwise nonspecific abdomen. Electronically signed by Alexandr Fitzgerald 01/26/2017 7:53 AM
[2017-01-26] MEDS: MIRALAX PO SCH ×2 (12:05→20:25)
[2017-01-26] MEDS ORDERED: SAMSCA PO ONE (15:41)
[2017-01-26] MEDS: LEVAQUIN 750 MG/D5W 750 MG/150 ML IVPB IV SCH (15:46)
--- NOTE | 2017-01-26 16:59 | PROGRESS NOTE ---
DATE: 01/26/2017 SUBJECTIVE: Today Ms. Celaya referred to be doing better. No abdominal pain. No nausea. No vomiting. Has had multiple rounds of bowel movements on the GoLYTELY. OBJECTIVE: Vital signs: Blood pressure is 177/60, pulse is 53, respirations 18, temperature 97.8 degrees. General: Ms. Celaya is a 76-year-old female. She is in bed, not in any remarkable distress. HEENT: Mucosa is pink and moist. Anicteric. Acyanotic. Neck: Supple. Chest: Clear. Cardiovascular: Regular rate and rhythm. Abdomen: Soft, nontender. Bowel sounds are present. There is an old infraumbilical surgical scar. There is an NG tube in place. Extremities: No pedal edema. 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 There is no focal neurological deficit. LABORATORY DATA: Has been reviewed. Hemoglobin is 12.9. Platelet count and WBC is normal. Chemistry is reviewed. Sodium continues to be 131. Urine osmolarity is 537 and urine sodium is 182 consistent with SIADH. ASSESSMENT: 1. Abdominal pain secondary to distal partial small bowel obstruction versus colonic dysmotility. Abdominal pain has improved. 2. Terminal ileitis. Possibly due to Crohn's flare. Patient is on antibiotic and steroid and seems to be doing a lot better. 3. Hyponatremia. Studies are consistent with SIADH. I will give the patient a dose of Samsca and repeat the sodium for tomorrow morning. 4. Hypertension. We will start the patient on p.o. medications. 5. Distal small bowel obstruction secondary to Crohn's stricture. The patient has no more abdominal pain. We are going to start her on some ice chips and water to see if she is able to tolerate this. 6. Severe constipation. The patient was started on GoLYTELY yesterday. She has had multiple bowel movements today. A KUB this morning shows improved constipation. PLAN: So our general plan, we are going to start Ms. Celaya on ice chips and sips of water to see if she is able to tolerate it. Will also restart her on her p.o. antihypertensive medications. If she is able to tolerate the sips and ice chips then we will advance it to clear liquids and remove the NG tube if it is okay with surgery. cc: Ulises Mason MD
--- NOTE | 2017-01-26 18:14 | PROGRESS NOTE ---
DATE: 01/26/2017 SUBJECTIVE: The patient says she feels good. She has had multiple bowel movements today. She has had no nausea, vomiting, or abdominal pain. OBJECTIVE: Vital signs: Afebrile. Vital signs are stable. General: She is alert and oriented x4. No acute distress. GI: Soft, nontender, nondistended. Good bowel sounds. IMAGING: An abdominal x-ray this morning revealed improved constipation and a nondistended small bowel and stomach. ASSESSMENT/PLAN: 76-year-old female with chronic stricture at the terminal ileum and constipation. This appears to be improved. Will discontinue her NG tube and start her on a clear liquid diet tonight. cc: Chun Sullivan MD
[2017-01-26] MEDS: FLAGYL PO SCH (20:24)
[2017-01-26] MEDS: REQUIP PO SCH (20:25)
[2017-01-27] MEDS: FLAGYL PO SCH ×3 (04:04→20:29)
--- NOTE | 2017-01-27 05:49 | PROGRESS NOTE ---
DATE: 01/27/2017 SUBJECTIVE: Patient doing okay. She has had multiple bowel movements. Tolerating a clear liquid diet. Over the weekend. She had her NG tube removed. She seems to be doing well. OBJECTIVE: Vital Signs: Patient is currently afebrile. Her vital signs have been stable. General Examination: No acute distress. Resting comfortably in bed. HEENT: Normocephalic, atraumatic. Pupils equal, round, react to light. Mucous membranes are moist. Oropharynx is benign. Neck: Supple. Trachea midline. Cardiovascular: Regular rate and rhythm. Lungs: Grossly clear. Abdomen: Soft, nontender, nondistended. Extremities: Moves all extremities. Neurologic: Grossly intact. Skin: No signs of jaundice. Vascular: All extremities perfused. Laboratory: Reviewed from the weekend. Abdominal film reviewed from the weekend. ASSESSMENT AND PLAN: A 76-year-old, female with a likely Crohn's stricture. 1. Crohn's stricture. At this time, she seems to be tolerating her food. We will continue her current bowel regimen. We will advance her to a regular diet. Again, I think the patient will likely have a recurrence of this bowel obstruction given the fact she has a stricture but the patient still refuses to have any surgery. The patient will likely need to follow up with her event attendant, Dr. Martinez, here in the near future. 2. Multiple medical comorbidities. Currently being managed by the hospitalist service. cc: Jonnathan Kessler MD
[2017-01-27] MEDS: SYNTHROID PO SCH (09:00)
[2017-01-27] MEDS: LEVAQUIN PO SCH (09:00)
[2017-01-27] MEDS: PREDNISONE PO SCH (09:01)
[2017-01-27] MEDS: TOPROL XL PO SCH (09:01)
[2017-01-27] MEDS: ASPIRIN EC PO SCH (09:01)
[2017-01-27] MEDS: PRINIVIL PO SCH (09:01)
[2017-01-27] MEDS: MIRALAX PO SCH ×2 (09:02→20:29)
[2017-01-27] MEDS ORDERED: TYLENOL PO PRN (18:08)
[2017-01-27] MEDS: REQUIP PO SCH (20:29)
--- NOTE | 2017-01-27 20:31 | PROGRESS NOTE ---
DATE: 01/27/2017 SUBJECTIVE: Patient currently is attempting to eat for the first time. She has only had 2 or 3 bites. Denies any nausea, vomiting. Denies any chest pain at this point. States that she seems to be keeping it down well. OBJECTIVE: Vital Signs: Reviewed. Temperature 98.7 degrees, pulse 67, respiratory rate 18, blood pressure 128/55. General: Patient is awake, alert. She is currently in no respiratory distress. Pleasant to talk with. Neck: Supple. No JVD. CARDIOVASCULAR: Regular rate and rhythm. Chest: Clear. Nonlabored. Abdomen: Soft, nondistended, nontender. Extremities: Moves all extremities. She has no edema. Neurologic: No focal changes. ASSESSMENT: 1. Abdominal pain. Seems to be improved. Patient is noted to have a colonic stricture for which she will need to have surgery at some point, although currently she declines. 2. Terminal ileitis likely secondary to a Crohn's flare. Currently she is improving, so therefore, we will continue to feed and continue to follow. 3. Hyponatremia, resolved. 4. Hypertension, stable. PLAN: If patient tolerates eating today, we will hopefully discharge her home either later this afternoon or tomorrow. Further orders as needed. Currently, her labs are stable. Her sodium is 131. Further orders as needed. cc: Dontae Gonzalez MD
[2017-01-27] MEDS ORDERED: IMURAN PO SCH (21:00)
[2017-01-28] MEDS: SYNTHROID PO SCH (06:27)
[2017-01-28] MEDS: FLAGYL PO SCH (06:27)
--- NOTE | 2017-01-28 07:16 | PROGRESS NOTE ---
DATE: 01/28/2017 SUBJECTIVE: Patient doing okay. She is having bowel movements. She is tolerating her regular diet. OBJECTIVE: Vital Signs: Patient is currently afebrile. Her vital signs are stable. General: No acute distress. HEENT: Normocephalic, atraumatic. Pupils equal, round, and reactive to light. Mucous membranes moist. Oropharynx benign. Neck supple. Trachea in midline. Cardiovascular: Regular rate and rhythm. Lungs are grossly clear. Abdomen soft, nontender, nondistended. Extremities: Moves all extremities. Neurologic: Grossly intact. Skin: No signs of jaundice. Vascular: All extremities perfused. LABORATORY: Laboratory reviewed from the day before. ASSESSMENT AND PLAN: A 76-year-old female with likely Crohn's stricture. 1. Crohn's stricture. At this time, she is symptomatically improving, although I think that her Crohn's stricture terminal ilium is still present. She is still refusing surgery. She will need to follow up with her nitroglycerin nitrator operator batch soon, but I think she can be discharged from the hospital. 2. Multiple medical comorbidities, currently being managed by the hospitalist service. cc: Jonnathan Kessler MD
[2017-01-28 08:03] VITALS: BP 145/58
[2017-01-28] MEDS: MIRALAX PO SCH (08:23)
[2017-01-28] MEDS: PRINIVIL PO SCH (08:23)
[2017-01-28] MEDS: ASPIRIN EC PO SCH (08:23)
[2017-01-28] MEDS: PREDNISONE PO SCH (08:23)
[2017-01-28] MEDS: TOPROL XL PO SCH (08:23)
[2017-01-28] MEDS: LEVAQUIN PO SCH (08:23)
--- NOTE | 2017-01-29 08:16 | DISCHARGE SUMMARY ---
ADMISSION DATE: 01/22/2017 DISCHARGE DATE: 01/28/2017 DIAGNOSES: 1. Crohn's stricture. 2. Abdominal pain secondary to #1. 3. Terminal ileitis, likely secondary to Crohn's flare, resolving. 4. Hyponatremia, resolved. 5. Hypertension, stable. CONSULTS: 1. Jonnathan Kessler MD - General Surgery. DIAGNOSTICS: 1. On 01/22/2017 CT of the abdomen and pelvis revealed a distended stomach, diffusely dilated small bowel, with postsurgical changes at the cecum or remaining proximal distended colon with retained fecal debris, with terminal ileitis with distal small-bowel obstruction. Nonspecific 1.2 x 0.8 cm non-calcified nodular density at the posterolateral right lower lobe. It may be inflammatory but malignancy is not excluded. 2. Chest x-ray revealed a NG tube placement in the stomach. 3. Abdominal x-ray revealed constipation with mild gaseous distention with a couple small bowel loops. Multiple air-fluid levels in the upright view. Possible small nodular opacity at the right lower lung. HOSPITAL COURSE: Ms. Celaya presented to the emergency room complaining of abdominal pain with associated nausea. She was found to have a Crohn's stricture at the terminal ileum. NG tube was placed for decompression. She was followed by General Surgery. As she improved, we were able to remove the NG tube and she did tolerate a GI soft diet without any abdominal pain or nausea. She did have multiple bowel movements while in the hospital. She did refuse to have surgery for this stricture; therefore, she was recommended to followup with GI per Dr. Kessler. PHYSICAL EXAMINATION: Cardiovascular: Regular rate and rhythm. S1, S2 appreciated. Pulmonary: Breath sounds clear. No increased work of breathing noted. Gastrointestinal: Abdomen was soft, nontender, nondistended with bowel sounds in all 4 quadrants. Neurologic: She is alert or x3 with cranial nerves 2-12 grossly intact. Discharge Vital Signs: Blood pressure is 148/50, with a heart rate of 64, respirations 18, temperature 97.8 degrees oral, with room air saturations 97 to 100%. DISCHARGE MEDICATIONS: 1. Aspirin 81 mg daily. 2. Toprol-XL 25 mg daily. 3. Imuran 100 mg at bedtime. 4. Synthroid 150 mcg daily. 5. Entocort EC 3 mg daily. 6. Requip 1 mg at bedtime. 7. MiraLAX 17 g b.i.d. 8. Medrol Dosepak as directed. 9. Prinivil 5 mg daily. FOLLOWUP: 1. She is to follow up with Dr. Martinez, her check inspector in the next 2-3 weeks. 2. Her primary care physician in the next 2-3 weeks, sooner if needed. 3. She is being discharged home in stable condition with family members. TIME SPENT: This is a greater than 30 minute discharge. Dictated by DONATO Ortega for Dontae Gonzalez MD cc: DONATO Ortega MD
--- NOTE | 2017-01-29 15:01 | PROGRESS NOTE ---
DATE: 01/28/2017 Progress Note/Discharge Summary: Patient was seen and examined by myself this morning. She was tolerating a GI soft diet although she was still having some abdominal pain. I again discussed with patient that she will most likely need to have this stricture fixed. However she still declines surgery. We will discuss whether she needs to continue to eat a GI soft diet. She needs to follow up outpatient with Dr. Martinez as well as with General Surgery if her symptoms worsen. Further orders as needed. Please see full dictation. Her labs are currently normal. cc: Dontae Gonzalez MD
== END 2017-01-28 11:40 | disposition home or self-care (01) ==
LOC: P.ED 01:25 → P.MEDSURG 09:25 → SUATTDRO 09:25
PROVIDERS: ATTEND Family Medicine

== ENCOUNTER 2017-02-10 04:26 | Inpatient (IN) ==
[2017-02-06 10:12] LABS: MANUAL DIFF NEEDED? NO
[2017-02-06 10:15] LABS: BASO% 0.9 % (0.0-0.8); EOS# 0.04 X1000 (0.0-0.7); EOS% 0.7 % (0.0-10.0); HEMATOCRIT 37.2 % (37.0-47.0); HEMOGLOBIN 13.2 g/dL (12.0-16.0); IMM GRAN# 0.02 X1000 (0.0-0.04); IMM GRAN% 0.4 % (0.0-0.5); LYMPH# 0.97 X1000 (1.2-3.4); LYMPH% 17.6 % (20.5-51.1); MCHC 35.5 g/dL (33-37); MONO% 12.7 % (1.7-9.3); MPV 9.8 FL (7.4-10.4); NEUT% 67.7 % (42.2-75.2); PLT 239 X1000 (130-400)
[2017-02-06 10:32] LABS: INR 0.96; PROTIME 10.1 Seconds (9.2-11.7)
[2017-02-06 11:14] LABS: AGAP 10; BUN 11 mg/dL (8-22); CALCIUM 9.2 mg/dL (8.8-10.2); CHLORIDE 91 mmol/L (98-107); COSMO 254; POTASSIUM 5.1 mmol/L (3.5-5.1); SODIUM 127 mmol/L (136-145); TCO2 26 mmol/L (25-35)
--- NOTE | 2017-02-06 11:20 | EKG Report ---
Test Performed on : 02/06/2017 09:22:24 AM Test Reason : paT Blood Pressure : / mmHG Vent. Rate : 054 BPM Atrial Rate : 054 BPM P-R Int : 154 ms QRS Dur : 136 ms QT Int : 450 ms P-R-T Axes : 073 046 076 degrees QTc Int : 426 ms Sinus bradycardia. Nonspecific intraventricular block Cannot rule out Septal infarct , age undetermined Abnormal ECG When compared with ECG of 06-DEC-2011 18:03, premature supraventricular complexes. are no longer present QRS duration has increased Minimal criteria for Septal infarct are now present ST no longer depressed in Anterior leads Confirmed by Tyree Jones MD ([id number]) on 02/08/2017 3:02:46 PM
[2017-02-10] MEDS ORDERED: PEPCID ONE (05:32)
[2017-02-10] MEDS ORDERED: INVANZ 1 GM/NS 1 GM/50 ML IVPB ONE (05:33)
[2017-02-10] MEDS ORDERED: ENTEREG ONE (05:33)
[2017-02-10] MEDS ORDERED: LR 1,000 ML ONE (05:33)
[2017-02-10] MEDS ORDERED: SODIUM CHLORIDE 0.9% 10 ML ONE (06:38)
[2017-02-10] MEDS ORDERED: QUELICIN (DOSE) ONE (06:38)
[2017-02-10] MEDS ORDERED: NORCURON ONE (06:38)
[2017-02-10] MEDS ORDERED: ZOFRAN ONE (06:38)
[2017-02-10] MEDS ORDERED: DIPRIVAN 1% ONE (06:38)
[2017-02-10] MEDS ORDERED: XYLOCAINE-MPF 2% ONE (06:38)
[2017-02-10] MEDS ORDERED: DECADRON ONE (07:21)
[2017-02-10] MEDS ORDERED: FENTANYL ONE ×2 (07:33→07:50)
[2017-02-10 07:53] LABS: URINE MICRO REVIEW NEEDED? NO; URINE SOURCE CATH
[2017-02-10 07:55] LABS: BILIRUBIN URINE NEGATIVE (NEGATIVE); BLOOD URINE SMALL (NEGATIVE); COLOR YELLOW; GLUCOSE URINE NEGATIVE (NEGATIVE); LEUKOCYTES URINE NEGATIVE (NEGATIVE); NITRITE URINE NEGATIVE (NEGATIVE); PROTEIN URINE 30 mg/dL (NEGATIVE); SP GRAVITY URINE 1.012; TURBIDITY URINE CLEAR (CLEAR); UROBILINOGEN URINE NORMAL (NORMAL)
[2017-02-10 07:57] LABS: UR EPITHELIAL CELLS <10 /HPF (<10); URINE BACTERIA NEGATIVE /HPF; URINE WBC <10 /HPF (<10)
[2017-02-10] MEDS ORDERED: LABETALOL ONE (08:11)
[2017-02-10] MEDS ORDERED: NEOSTIGMINE ONE (09:35)
[2017-02-10] MEDS ORDERED: ROBINUL ONE (09:35)
[2017-02-10] MEDS: MORPHINE ONE ×7 (09:53→10:45)
[2017-02-10] MEDS ORDERED: NS 1,000 ML ONE (10:42)
[2017-02-10] MEDS: NS 1,000 ML IV SCH ×2 (11:21→21:13)
--- NOTE | 2017-02-10 15:12 | OPERATIVE NOTE ---
PROCEDURE DATE: 02/10/2017 PREOP DIAGNOSIS: Small bowel stricture with partial obstruction and a history of Crohn disease. POSTOP DIAGNOSIS: Small bowel stricture with partial obstruction and a history of Crohn disease. PROCEDURE: 1. Exploratory laparotomy with extensive lysis of adhesions. 2. Small bowel resection and partial colectomy with ileocolic anastomosis. SURGEON: Chun Sullivan MD. ANESTHESIA: General. ESTIMATED BLOOD LOSS: 50 mL. COMPLICATIONS: None apparent. SPECIMENS: Distal small bowel and proximal transverse colon. FINDINGS: She had severe adhesions of her distal small bowel and proximal transverse colon along with omentum to the retroperitoneum, anterior abdominal wall and interloop adhesions. The distal small bowel and proximal colon anastomosis appeared to be thickened, indurated and somewhat tortuous and strictured and certainly appeared to be causing a partial obstruction. The remaining portions of her transverse colon, descending colon, sigmoid colon, rectum and all of her small bowel from the ligament of Treitz to the distal small bowel all were normal. The gallbladder appeared normal. TECHNIQUE: She was brought to the operating room and placed supine on the table. General anesthesia was induced. A Weston catheter was placed. She was prepped and draped in usual sterile fashion. A midline incision was made from the symphysis pubis up to a few centimeters above the umbilicus with a knife and carried down through the subcutaneous fat with cautery through the fascia and peritoneum and entered the peritoneal cavity safely. I began encountering dense adhesions of omentum and small bowel to the lower midline which were taken down carefully and tediously with Metzenbaum scissors and cautery. We continued to encounter very severe adhesions of distal small bowel and proximal colon and omentum to the right anterior abdominal wall, pericolic gutter and retroperitoneum. I carefully lysed these adhesions little by little until I was able to mobilize this wadded mass of bowel and omentum up off the retroperitoneum and lateral sidewall. Along the way I did identify the right gonadal vein as well as the ureter and safely preserved them. I also identified the duodenum as we came around the hepatic flexure and safely avoided any duodenal injury. After I was able to mobilize this area I began dividing some of the gastrocolic ligament with cautery. Some small bleeders were ligated with 3-0 silk suture. I examined the anastomotic area. There was certainly some tortuosity and induration of the bowel and mesentery. It appeared to be causing a partial obstruction. I then ran the small bowel from the ligament of Treitz all the way down to the distal terminal ileum and the remaining portions of small bowel were completely normal. The distal transverse colon, descending colon, sigmoid colon, and rectum were all normal in appearance. This did not appear to be amenable to any kind of stricturoplasty and I determined that a resection of the pathologic area was needed. I did measure the length of her small bowel that remained and it was over 200 cm remaining of normal small bowel. I created a mesenteric window at the distal small bowel taking perhaps 15-20 cm of the distal small bowel and created a window through the mesentery of the proximal transverse colon where it appeared normal. I put bowel clamps on the proximal side and Kochers on the coming out side and divided in between with scissors. I then divided the intervening small bowel and colon mesentery with the LigaSure and removed the specimen off the field. I then brought the 2 ends of bowel together. They appeared to be amenable to an end-to-end anastomosis. I started the anastomosis with a posterior row of 3-0 silk Lembert sutures in an interrupted fashion. I then removed the bowel clamps and trimmed the clamped portion of the intestinal wall on each side with Metzenbaum scissors. There was no spillage of any stool content throughout this case. I then started my inner posterior layer with a running locking 3-0 Vicryl converting to a baseball stitch anteriorly and then oversewed the anterior suture line with a 2nd row of 3-0 silk Lembert-type sutures. The anastomosis was widely patent. It appeared to have good blood supply. I then closed the rent in the mesentery with interrupted 3-0 silk sutures about a centimeter and a half in between each one. The small bowel and colon was replaced into its normal anatomic position. I checked for any bleeding, did not see any. Our laparotomy pads were removed and then we closed the incision with a running #1 Prolene in 2 directions. The skin was closed with skin clips. There were no apparent complications. She was awakened in stable condition and transferred to the recovery room. cc: Chun Sullivan MD
[2017-02-10] MEDS: TYLENOL PO SCH (20:44)
[2017-02-10] MEDS: ZANTAC PO SCH (20:45)
[2017-02-10] MEDS: REQUIP PO SCH (20:45)
[2017-02-10] MEDS: IMURAN PO SCH (21:13)
[2017-02-10] MEDS: DILAUDID IV PRN (21:13)
[2017-02-11] MEDS: NS 1,000 ML IV SCH ×4 (01:41→18:17)
[2017-02-11 05:51] LABS: HEMATOCRIT 31.7 % (37.0-47.0); MCH 33.6 PG (27-31); MCHC 34.7 g/dL (33-37); MCV 96.9 FL (81-99); MPV 10.1 FL (7.4-10.4); RBC 3.27 XMIL (4.2-5.4)
[2017-02-11] MEDS: DILAUDID IV PRN ×5 (06:04→18:56)
[2017-02-11] MEDS: SYNTHROID PO SCH (06:05)
[2017-02-11 06:14] LABS: AGAP 10; BUN 7 mg/dL (8-22); CALCIUM 8.2 mg/dL (8.8-10.2); CHLORIDE 99 mmol/L (98-107); COSMO 264; POTASSIUM 4.1 mmol/L (3.5-5.1); SODIUM 133 mmol/L (136-145); TCO2 24 mmol/L (25-35)
[2017-02-11] MEDS: PRINIVIL PO SCH (08:21)
[2017-02-11] MEDS: ZANTAC PO SCH ×2 (08:21→21:33)
[2017-02-11] MEDS: ENTEREG PO SCH ×2 (08:21→21:33)
[2017-02-11] MEDS: ENTOCORT EC PO SCH (08:21)
[2017-02-11] MEDS: ASPIRIN EC PO SCH (08:21)
[2017-02-11] MEDS: PERIDEX MT SCH ×2 (08:22→21:33)
--- NOTE | 2017-02-11 09:05 | PROGRESS NOTE ---
DATE: 02/11/2017 SUBJECTIVE: The patient is feeling pretty good overall. She is having some mild abdominal pain and belching some but no nausea, vomiting, chest pain, shortness of breath, or other systemic complaints. OBJECTIVE: Vital signs: She is afebrile. Vital signs are stable. General: She is alert and oriented x4. No acute distress. CV: Regular rate and rhythm. Respiratory: No work of breathing. GI: Soft. Hypoactive bowel sounds. Nondistended. Mild tenderness. Dressing is clean, dry, and intact. LABORATORY: White blood cell count 9.5, hemoglobin 11, hematocrit 31.7, platelet count 179,000. Sodium 133, potassium 4.1, chloride 99, CO2 24, BUN 7 creatinine 0.6. ASSESSMENT AND PLAN: This is a 76-year-old female postoperative day 1 from extensive lysis of adhesions as well as small bowel resection and partial colectomy. She seems to be doing fairly well. We are awaiting return of her bowel function. We will remove her Weston catheter today. Encourage ambulation and allow her to have ice chips for now. cc: Chun Sullivan MD
[2017-02-11] MEDS: ZOFRAN IV PRN (18:16)
[2017-02-11] MEDS: REQUIP PO SCH (21:33)
[2017-02-11] MEDS: TYLENOL PO SCH (21:33)
[2017-02-11] MEDS: IMURAN PO SCH (21:33)
[2017-02-12] MEDS: NS 1,000 ML IV SCH (01:00)
[2017-02-12] MEDS: SYNTHROID PO SCH ×2 (05:55→07:55)
[2017-02-12] MEDS: DILAUDID IV PRN ×5 (05:56→21:35)
[2017-02-12] MEDS: ZANTAC PO SCH ×2 (09:57→20:14)
[2017-02-12] MEDS: ENTOCORT EC PO SCH (09:58)
[2017-02-12] MEDS: ASPIRIN EC PO SCH (09:58)
[2017-02-12] MEDS: PRINIVIL PO SCH (09:58)
[2017-02-12] MEDS: PERIDEX MT SCH ×2 (09:58→20:14)
[2017-02-12] MEDS: ENTEREG PO SCH ×2 (09:58→20:14)
[2017-02-12] MEDS: ZOFRAN IV PRN ×2 (12:34→18:07)
--- NOTE | 2017-02-12 14:54 | PROGRESS NOTE ---
DATE: 02/12/2017 SUBJECTIVE: The patient is doing okay. She is sore with some occasional nausea and burping. No flatus or bowel movement yet. She is doing okay on ice chips for now. OBJECTIVE: Vital signs: She is afebrile. Vital signs are stable. General: She is alert and oriented x3. No acute distress. Cardiovascular: Regular rate and rhythm. Respiratory: No work of breathing. Gastrointestinal: Soft, nondistended, hypoactive bowel sounds. Incisional dressing is clean and dry. LABORATORY: None. ASSESSMENT AND PLAN: A 76-year-old female, status post exploratory laparotomy with extensive lysis of adhesions and resection of prior stenosed terminal ileum and proximal colon. The pathology report did confirm adhesions and stricture of the prior anastomosis. I will start her on clear liquids today and advance her as tolerated over the next couple of days. cc: Chun Sullivan MD
[2017-02-12] MEDS: TYLENOL PO SCH (20:14)
[2017-02-12] MEDS: REQUIP PO SCH (20:14)
[2017-02-12] MEDS: IMURAN PO SCH (20:14)
[2017-02-12] MEDS: MILK OF MAGNESIA PO SCH (20:14)
[2017-02-13] MEDS: NS 1,000 ML IV SCH ×4 (03:28→14:50)
[2017-02-13] MEDS: SYNTHROID PO SCH (06:45)
[2017-02-13] MEDS: PERIDEX MT SCH ×2 (09:00→21:32)
[2017-02-13] MEDS: DILAUDID IV PRN ×3 (09:00→21:45)
[2017-02-13] MEDS: ZANTAC PO SCH ×2 (09:00→21:31)
[2017-02-13] MEDS: ENTOCORT EC PO SCH (09:00)
[2017-02-13] MEDS: MILK OF MAGNESIA PO SCH ×2 (09:00→21:32)
[2017-02-13] MEDS: ENTEREG PO SCH ×2 (09:00→21:31)
[2017-02-13] MEDS: PRINIVIL PO SCH (09:00)
[2017-02-13] MEDS: ASPIRIN EC PO SCH (09:00)
[2017-02-13] MEDS: ZOFRAN IV PRN ×2 (10:51→17:27)
--- NOTE | 2017-02-13 12:20 | PROGRESS NOTE ---
DATE: 02/13/2017 SUBJECTIVE: The complains of intermittent nausea. No vomiting. No flatus or bowel movement yet. She has sipped some clear liquids but is not interested in drinking much. She is walking around occasionally. OBJECTIVE: General: She is awake and alert. No acute distress. CV: Regular rate and rhythm. Respiratory: Bilateral equal breath sounds. GI: Soft. Mildly distended and tympanic. She has hypoactive bowel sounds. She is mildly tender. Her incisional dressing is clean and dry. PATHOLOGY: The small bowel and colon showed adhesions and stricture of a prior anastomosis. ASSESSMENT AND PLAN: This is a 76-year-old female status post repeat resection of small bowel and proximal colon due to adhesions and stricture formation and chronic partial obstruction. She is doing okay. She continues to have sluggish return of bowel function. We are awaiting her to pass flatus. She is on sips of clears, Entereg, and milk of magnesia. cc: Chun Sullivan MD
[2017-02-13] MEDS: IMURAN PO SCH (21:28)
[2017-02-13] MEDS: REQUIP PO SCH (21:29)
[2017-02-13] MEDS: TYLENOL PO SCH (21:30)
[2017-02-14] MEDS: ZOFRAN IV PRN ×4 (03:42→17:12)
[2017-02-14] MEDS: NS 1,000 ML IV SCH ×2 (05:37→06:19)
[2017-02-14] MEDS: SYNTHROID PO SCH (06:14)
[2017-02-14] MEDS: MILK OF MAGNESIA PO SCH ×2 (08:12→22:47)
[2017-02-14] MEDS: ENTEREG PO SCH ×2 (08:12→22:47)
[2017-02-14] MEDS: ZANTAC PO SCH ×2 (08:12→22:47)
[2017-02-14] MEDS: PRINIVIL PO SCH ×2 (08:13→08:14)
[2017-02-14] MEDS: ASPIRIN EC PO SCH (08:13)
[2017-02-14] MEDS: DILAUDID IV PRN ×2 (09:37→12:48)
[2017-02-14] MEDS: PERIDEX MT SCH ×2 (12:44→22:47)
[2017-02-14] MEDS: ENTOCORT EC PO SCH (12:44)
--- NOTE | 2017-02-14 16:50 | PROGRESS NOTE ---
DATE: 02/14/2017 SUBJECTIVE: the patient has had a couple of bowel movements and has passed gas several times. She is keeping some liquids down. However, she does have frequent bouts of nausea and abdominal cramping. OBJECTIVE: Vital Signs: She is afebrile. Vital signs are stable. General: She is alert and oriented x3. No acute distress. Cardiovascular: Regular rate and rhythm. Respiratory: No work of breathing. Gastrointestinal: Soft, mildly distended and tympanic. She does have good bowel sounds. Her incision is clean, dry, and intact. She is moderately tender but no rebound or guarding. ASSESSMENT/PLAN: A 76-year-old female, status post lysis of adhesions and ileocolic resection for a strictured anastomosis. She is slowly having return of bowel function. We are going to advanced her to a full liquid diet today. I have encouraged her to keep to continue walking. I will Hep-Lock her fluids. Dr. Schumacher will make rounds for me during my absence. cc: Chun Sullivan MD
[2017-02-14] MEDS: NORCO-7.5 PO PRN (20:30)
[2017-02-14] MEDS: IMURAN PO SCH (22:47)
[2017-02-14] MEDS: REQUIP PO SCH (22:47)
[2017-02-15] MEDS: DILAUDID IV PRN ×2 (02:32→15:22)
[2017-02-15] MEDS: ZOFRAN IV PRN ×4 (02:32→21:29)
[2017-02-15] MEDS: SYNTHROID PO SCH (06:37)
[2017-02-15] MEDS: ENTEREG PO SCH (08:26)
[2017-02-15] MEDS: ZANTAC PO SCH ×2 (08:26→23:08)
[2017-02-15] MEDS: ENTOCORT EC PO SCH (08:26)
[2017-02-15] MEDS: ASPIRIN EC PO SCH (08:26)
[2017-02-15] MEDS: PERIDEX MT SCH ×2 (08:26→23:08)
[2017-02-15] MEDS: PRINIVIL PO SCH (08:26)
[2017-02-15] MEDS: TOPROL XL PO SCH (08:26)
[2017-02-15] MEDS: MILK OF MAGNESIA PO SCH ×2 (08:26→23:08)
[2017-02-15] MEDS: NORCO-7.5 PO PRN ×2 (08:26→21:29)
--- NOTE | 2017-02-15 11:56 | PROGRESS NOTE ---
DATE: 02/15/2017 SUBJECTIVE: Ms. Christine Celaya is a 76-year-old white female who is now postop day 5 from an ileocolonic resection per Dr. Patel for adhesions and stricture of prior anastomosis in this area. She is walking the halls this morning. She has had some flatus but she still feels distended and is just sipping clear liquids. OBJECTIVE: Her heart rate is 80. Blood pressure 178/68. O2 saturation 97%. She has no work of breathing. She is afebrile on no antibiotics. Her lower midline incision is healing well without evidence of infection. Her abdomen appears slightly distended. PLAN: We will continue a full liquid diet at her request. We will stop her Entereg. We will begin Lovenox. She is already back on her home medications. cc: MD Chun Menchaca MD
[2017-02-15] MEDS: IMURAN PO SCH (23:08)
[2017-02-15] MEDS: REQUIP PO SCH (23:08)
[2017-02-16] MEDS ORDERED: LOVENOX SUBQ SCH (06:00)
[2017-02-16] MEDS: ZOFRAN IV PRN ×2 (06:26→11:10)
[2017-02-16] MEDS: NORCO-7.5 PO PRN (06:26)
[2017-02-16] MEDS: SYNTHROID PO SCH (06:26)
[2017-02-16 08:14] VITALS: BP 145/59
[2017-02-16] MEDS: ZANTAC PO SCH (08:39)
[2017-02-16] MEDS: ENTOCORT EC PO SCH (08:39)
[2017-02-16] MEDS: ASPIRIN EC PO SCH (08:39)
[2017-02-16] MEDS: PRINIVIL PO SCH (08:39)
[2017-02-16] MEDS: TOPROL XL PO SCH (08:39)
[2017-02-16] MEDS: PERIDEX MT SCH (08:40)
[2017-02-16] MEDS: MILK OF MAGNESIA PO SCH (08:40)
[2017-02-16] MEDS ORDERED: DIFLUCAN PO ONE (09:52)
[2017-02-16] MEDS ORDERED: FLUZONE QUAD 2017-2018 SYRINGE IM ONE (12:13)
--- NOTE | 2017-02-16 21:16 | DISCHARGE SUMMARY ---
ADMISSION DATE: 02/10/2017 DISCHARGE DATE: 02/16/2017 ADMITTING DIAGNOSIS: Small-bowel stricture with partial obstruction and history of Crohn disease. DISCHARGE DIAGNOSIS: Small-bowel stricture with partial obstruction and history of Crohn disease. PRINCIPAL PROCEDURE: 1. Exploratory laparotomy with lysis of adhesions. 2. Small-bowel resection with partial colectomy with ileocolic anastomosis per Dr. Chun Sullivan on 02/10/2017. DISCHARGE DIET: Is regular. DISCHARGE DISPOSITION: She will return to our outpatient offices later this week for wound check and also skin clip removal. DISCHARGE MEDICATIONS: She is to return to her home medications. DISCHARGE DISABILITY: Full. HOSPITAL COURSE: Ms. Christine Celaya is a 76-year-old white female patient Dr. Chun Sullivan and also Anand Stroud. She was admitted on the day of surgery and underwent a ileocolic resection for a stricture. This was performed on 02/10/2017. We feel that her postoperative convalescence been normal. She has had a postoperative ileus which is now resolved. She is tolerating a regular diet. She is moving easily around in the room. She has had some bowel activity. Her midline incision is healing without infection. It was felt safe to discharge her home under the care of her . On discharge her heart rate was 79, blood pressure 145/59, O2 saturation 95%. She had a temperature 99.4 degrees on no antibiotics. She is to return to her home medications and knows to contact us with any increasing abdominal pain, distention, nausea and vomiting. Otherwise we will see her Friday or of this week for recheck and skin clip removal. cc: MD Chun Rivera MD
== END 2017-02-16 12:52 | disposition home or self-care (01) ==
LOC: SURHOLD 04:26 → 4N 09:57
PROVIDERS: ADMIT Surgery; ATTEND Surgery